=== PATIENT | female | born 1935 | race Caucasian/White ===

== ENCOUNTER 2017-10-03 15:17 | Inpatient (IN) | payer OTHER ==
[~2017-10-03] VITALS: Ht 162.6 cm; Wt 84.6 kg
[~2017-10-03 15:17] MED LIST: CRESTOR20 MG PO; ELIQUIS5 MG PO; furosemide PO
[2017-10-03 17:16] LABS: EOSINOPHIL (%) 2.6 % (0-5); EOSINOPHIL COUNT 0.2 K/uL (0-0.3); HEMATOCRIT 33.6 % (36.0-46.0); IMMATURE GRANULOCYTE (%) 0.5 % (0.0-0.7); INSTRUMENT ABS NEUTROPHIL CT 3.5 K/uL; LYMPHOCYTE COUNT 1.5 K/uL (1.0-2.8); MCH 25.7 PG (29.0-34.0); MCHC 29.8 G/DL (30.0-36.0); MCV 86.4 FL (83-99); MEAN PLAT.VOLUME 11.5 uM^3 (9.5-12.4); MONOCYTE (%) 10.2 % (3-12); MONOCYTE COUNT 0.6 K/uL (0-0.8); NEUTROPHIL (%) 60.1 % (45-76); NEUTROPHIL COUNT 3.5 K/uL (1.8-6.4); PLATELET COUNT 211 K/uL (156-360); RBC DIS.WIDTH-CV 15.5 % (11.8-14.6); RBC DIS.WIDTH-SD 48.9 % (39-53); RED BLOOD COUNT 3.89 M/uL (3.80-5.20); WHITE BLOOD COUNT 5.8 K/uL (4.1-10.2)
[2017-10-03 17:29] LABS: CHLORIDE 103 mEq/L (99-109); POTASSIUM 4.2 mEq/L (3.7-5.4); SODIUM 141 mEq/L (136-147)
[2017-10-03 17:30] LABS: GLUCOSE 97 mg/dL (70-99)
[2017-10-03 17:32] LABS: ANION GAP 8 MEQ/L (2-14)
[2017-10-03 17:34] LABS: GFR ESTIMATE (CALCULATED) > 59 mL/min/
[2017-10-03 17:35] LABS: UREA NITROGEN (BUN) 19 mg/dL (9-23)
[2017-10-03 17:40] LABS: TROP-I INTERPRETATION NEGATIVE; TROPONIN-I 0.07 ng/mL (0.0-0.30)
[2017-10-03 19:13] LABS: TROP-I INTERPRETATION NEGATIVE; TROPONIN-I 0.07 ng/mL (0.0-0.30)
[2017-10-03] MEDS ORDERED: METFORMIN HCL500 MG PO (22:08)
[2017-10-03] MEDS ORDERED: LOSARTAN POTAS100 MG PO (22:14)
[2017-10-03] MEDS ORDERED: POTASSIUM CHLO10 ME3 PO (22:14)
[2017-10-03] MEDS ORDERED: CARTIA XT120 MG PO (22:15)
[2017-10-03] MEDS ORDERED: CARVEDILOL12.5 MG PO (22:16)
[2017-10-03] MEDS ORDERED: FENOFIBRATE145 M1 PO (22:16)
[2017-10-03] MEDS ORDERED: JANUVIA100 MG PO (22:17)
[2017-10-03] MEDS ORDERED: VITAMIN D10000 UNIT PO (22:19)
[2017-10-03] MEDS ORDERED: Q-SORB CO Q-10200 MG PO (22:20)
[2017-10-03] MEDS ORDERED: TYLENOL ARTHRI650 MG PO (22:22)
[2017-10-03 22:57] VITALS: BP 139/65
[2017-10-04 03:09] LABS: HEMATOCRIT 30.8 % (36.0-46.0); MCH 25.8 PG (29.0-34.0); MCHC 29.9 G/DL (30.0-36.0); MCV 86.5 FL (83-99); PLATELET COUNT 200 K/uL (156-360); RBC DIS.WIDTH-CV 15.4 % (11.8-14.6); RBC DIS.WIDTH-SD 49.3 % (39-53); RED BLOOD COUNT 3.56 M/uL (3.80-5.20); WHITE BLOOD COUNT 5.8 K/uL (4.1-10.2)
[2017-10-04 03:28] LABS: CHLORIDE 100 mEq/L (99-109); POTASSIUM 3.7 mEq/L (3.7-5.4); SODIUM 143 mEq/L (136-147)
[2017-10-04 03:30] LABS: GLUCOSE 94 mg/dL (70-99); TROP-I INTERPRETATION NEGATIVE; TROPONIN-I 0.07 ng/mL (0.0-0.30)
[2017-10-04 03:31] LABS: ANION GAP 8 MEQ/L (2-14)
[2017-10-04 03:32] LABS: TOTAL BILIRUBIN 0.3 mg/dL (0.0-1.0)
[2017-10-04 03:34] LABS: ALKALINE PHOSPHATASE 69 IU/L (3-129); GFR ESTIMATE (CALCULATED) > 59 mL/min/
[2017-10-04 03:35] LABS: UREA NITROGEN (BUN) 21 mg/dL (9-23)
[2017-10-04 04:09] VITALS: BP 133/73
[2017-10-04 07:08] VITALS: BP 131/56
[2017-10-04 11:11] VITALS: BP 122/60
[2017-10-04 12:14] LABS: TROP-I INTERPRETATION NEGATIVE; TROPONIN-I 0.08 ng/mL (0.0-0.30)
[2017-10-04 15:18] VITALS: BP 104/51
[2017-10-04 19:57] VITALS: BP 119/57
[2017-10-04 23:55] VITALS: BP 106/55
[2017-10-05] VITALS (7 sets, daily range): BP systolic 107–156; BP diastolic 56–66
[2017-10-05 05:26] LABS: EOSINOPHIL (%) 2.2 % (0-5); EOSINOPHIL COUNT 0.1 K/uL (0-0.3); HEMATOCRIT 30.8 % (36.0-46.0); IMMATURE GRANULOCYTE (%) 0.3 % (0.0-0.7); INSTRUMENT ABS NEUTROPHIL CT 3.8 K/uL; LYMPHOCYTE COUNT 1.7 K/uL (1.0-2.8); MCH 25.6 PG (29.0-34.0); MCHC 30.2 G/DL (30.0-36.0); MCV 84.8 FL (83-99); MEAN PLAT.VOLUME 11.8 uM^3 (9.5-12.4); MONOCYTE (%) 10.8 % (3-12); MONOCYTE COUNT 0.7 K/uL (0-0.8); NEUTROPHIL COUNT 3.8 K/uL (1.8-6.4); PLATELET COUNT 206 K/uL (156-360); RBC DIS.WIDTH-CV 15.7 % (11.8-14.6); RBC DIS.WIDTH-SD 48.6 % (39-53); RED BLOOD COUNT 3.63 M/uL (3.80-5.20); WHITE BLOOD COUNT 6.3 K/uL (4.1-10.2)
[2017-10-05 06:15] LABS: ANION GAP 5 MEQ/L (2-14); CHLORIDE 96 MEQ/L (99-109); GFR ESTIMATE (CALCULATED) > 59 mL/min/; GLUCOSE 122 mg/dL (70-99); POTASSIUM 3.9 MEQ/L (3.7-5.4); SAMPLE HEMOLYSIS CHECK 0; SAMPLE ICTERIC CHECK 0; SAMPLE LIPEMIA CHECK 0; SODIUM 141 MEQ/L (136-147); UREA NITROGEN (BUN) 27 mg/dL (9-23)
[2017-10-06 03:56] VITALS: BP 124/60
[2017-10-06 05:56] LABS: ANION GAP 8 MEQ/L (2-14); CHLORIDE 95 MEQ/L (99-109); GFR ESTIMATE (CALCULATED) > 59 mL/min/; GLUCOSE 143 mg/dL (70-99); POTASSIUM 4.1 MEQ/L (3.7-5.4); SAMPLE HEMOLYSIS CHECK 0; SAMPLE ICTERIC CHECK 0; SAMPLE LIPEMIA CHECK 0; SODIUM 139 MEQ/L (136-147); UREA NITROGEN (BUN) 31 mg/dL (9-23)
[2017-10-06 07:50] VITALS: BP 132/61
[2017-10-06 12:00] VITALS: BP 143/65
[2017-10-06] MEDS ORDERED: ICY HOT 4%-1%76.5 GM TP (15:30)
[2017-10-06 16:21] VITALS: BP 147/65
[2017-10-06 20:59] VITALS: BP 144/64
[2017-10-07] VITALS (9 sets, daily range): BP systolic 105–157; BP diastolic 51–74
[2017-10-07 06:46] LABS: ANION GAP 6 MEQ/L (2-14); CHLORIDE 98 MEQ/L (99-109); GFR ESTIMATE (CALCULATED) > 59 mL/min/; GLUCOSE 125 mg/dL (70-99); SAMPLE HEMOLYSIS CHECK 0; SAMPLE ICTERIC CHECK 0; SAMPLE LIPEMIA CHECK 0; SODIUM 139 MEQ/L (136-147); UREA NITROGEN (BUN) 26 mg/dL (9-23)
[2017-10-08 03:37] VITALS: BP 101/51
[2017-10-08 08:37] VITALS: BP 122/56
[2017-10-08 16:44] VITALS: BP 122/58
[2017-10-08] MEDS ORDERED: DUONEB 2.5-0.5 M3 ML AEROSOL (16:45)
[2017-10-08] MEDS ORDERED: SPIRONOLACTONE25 MG PO (16:46)
[2017-10-08] MEDS ORDERED: TRAMADOL HCL50 MG PO (16:46)
[2017-10-08] MEDS ORDERED: Colchicine,Colcrys PO (16:47)
[2017-10-08] MEDS ORDERED: DOCUSATE SODIU100 MG PO (16:47)
[2017-10-08] MEDS ORDERED: FUROSEMIDE40 MG PO (16:47)
== END 2017-10-08 18:16 | DRG 292 ==
LOC: EME 15:17 → EDOF 21:30 → 4EAST 21:30 → ENRESERV 21:52 → 4EAST 22:37 → ENRESERV 10-07 14:39 → 2EAST 10-07 18:23
PROVIDERS: Emergency Medicine; Family Medicine Sports Medicine; Internal Medicine
DX: I50.33 Acute on chronic diastolic (congestive) heart failure (principal); I48.2 Chronic atrial fibrillation; J44.9 Chronic obstructive pulmonary disease, unspecified; I49.5 Sick sinus syndrome; J90 Pleural effusion, not elsewhere classified; M10.9 Gout, unspecified; R09.02 Hypoxemia; I11.0 Hypertensive heart disease with heart failure; E78.5 Hyperlipidemia, unspecified; D64.9 Anemia, unspecified; E66.9 Obesity, unspecified; E11.9 Type 2 diabetes mellitus without complications; I25.10 Atherosclerotic heart disease of native coronary artery without angina pectoris; M17.11 Unilateral primary osteoarthritis, right knee; M25.561 Pain in right knee; Z87.891 Personal history of nicotine dependence; Z68.33 Body mass index [BMI] 33.0-33.9, adult; Z95.0 Presence of cardiac pacemaker; Z95.1 Presence of aortocoronary bypass graft; Z80.49 Family history of malignant neoplasm of other genital organs; Z90.710 Acquired absence of both cervix and uterus; Z80.0 Family history of malignant neoplasm of digestive organs; I25.2 Old myocardial infarction
CPT/HCPCS: 71010; 71020; 73564; 73630; 80048; 80053; 82306; 82607; 83880; 84439; 84443; 84484; 84550; 85025; 85027; 93005; 93306; 93970; 94640; 94640 76; 94799; 99202; 99281; 99285; J1940

== ENCOUNTER 2017-11-03 12:08 | Inpatient (IN) | payer OTHER ==
[~2017-11-03] VITALS: Ht 165.1 cm; Wt 79.9 kg
[~2017-11-03 12:08] MED LIST changes: +CARTIA XT120 MG PO; +CARVEDILOL12.5 MG PO; +Colchicine,Colcrys PO; +DOCUSATE SODIU100 MG PO; +DUONEB 2.5-0.5 M3 ML AEROSOL; +FENOFIBRATE145 M1 PO; +FUROSEMIDE40 MG PO; +ICY HOT 4%-1%76.5 GM TP; +JANUVIA100 MG PO; +LOSARTAN POTAS100 MG PO; +METFORMIN HCL500 MG PO; +POTASSIUM CHLO10 ME3 PO; +Q-SORB CO Q-10200 MG PO; +SPIRONOLACTONE25 MG PO; +TRAMADOL HCL50 MG PO; +TYLENOL ARTHRI650 MG PO; +VITAMIN D10000 UNIT PO
[2017-11-03] MEDS ORDERED: FUROSEMIDE40 MG PO (15:56)
[2017-11-03] MEDS ORDERED: COLCHICINE0.6 M1 PO (15:56)
[2017-11-03] MEDS ORDERED: MICRO-K10 ME2 PO (15:57)
[2017-11-03] MEDS ORDERED: SODIUM CHLORIDE1 G1 PO (15:59)
[2017-11-03] MEDS ORDERED: TRADJENTA5 MG PO (15:59)
[2017-11-03] MEDS ORDERED: QUESTRAN PACKET4 GM PO ×2 (16:00→16:11)
[2017-11-03] MEDS ORDERED: ACIDOPHILUS1 EAC3 PO (16:01)
[2017-11-03 16:02] LABS: APPEARANCE SL.HAZY ((CLEAR)); BILIRUBIN NEGATIVE; BLOOD SMALL; COLOR YELLOW ((YELLOW)); GLUCOSE (STRIP) NEGATIVE; KETONES NEGATIVE; LEUKOCYTES LARGE; NITRITE NEGATIVE; PROTEIN (STRIP) NEGATIVE; UROBILINOGEN 0.2 MG/DL (0.2-1.0)
[2017-11-03] MEDS ORDERED: Q-SORB CO Q-10200 MG PO (16:03)
[2017-11-03] MEDS ORDERED: THIAMINE HCL100 MG PO (16:03)
[2017-11-03] MEDS ORDERED: BENADRYL ALLERG25 MG PO (16:05)
[2017-11-03] MEDS ORDERED: CATAPRES0.1 MG PO (16:05)
[2017-11-03 16:07] LABS: BACTERIA RARE /HPF; EPITHELIAL CELLS RARE /HPF; HYALINE CASTS 0-5 /LPF; MUCUS TRACE /LPF; RED BLOOD CELLS 0-5 /HPF (0-5); WHITE BLOOD CELLS 20-30 /HPF (0-5)
[2017-11-03] MEDS ORDERED: DULCOLAX10 MG PR (16:07)
[2017-11-03] MEDS ORDERED: PHILLIPS'400 MG/5 M PO (16:07)
[2017-11-03] MEDS ORDERED: FLEET ENEMA-AD118 ML PR (16:08)
[2017-11-03] MEDS ORDERED: DUONEB 2.5-0.5 M3 ML AEROSOL (16:09)
[2017-11-03] MEDS ORDERED: TRAMADOL HCL50 MG PO (16:10)
[2017-11-03] MEDS ORDERED: CEPACOL SORE T1 EAC9 MM (16:11)
[2017-11-03] MEDS ORDERED: ATIVAN0.5 MG PO (16:12)
[2017-11-03] MEDS ORDERED: ANTIVERT12.5 MG PO (16:12)
[2017-11-03] MEDS ORDERED: ZOFRAN ODT8 MG PO (16:13)
[2017-11-03] MEDS ORDERED: IMODIUM A-D2 M2 PO (16:13)
[2017-11-03 21:05] VITALS: BP 118/58
[2017-11-04] VITALS (9 sets, daily range): BP systolic 94–121; BP diastolic 48–86
[2017-11-04 05:18] LABS: STOOL OCCULT BLD 1ST SPECIMEN NEGATIVE
[2017-11-04 05:58] LABS: HEMATOCRIT 30.1 % (36.0-46.0); MCH 24.8 PG (29.0-34.0); MCHC 29.9 G/DL (30.0-36.0); MCV 82.9 FL (83-99); RBC DIS.WIDTH-CV 17.2 % (11.8-14.6); RBC DIS.WIDTH-SD 49.4 % (39-53); RED BLOOD COUNT 3.63 M/uL (3.80-5.20); WHITE BLOOD COUNT 5.5 K/uL (4.1-10.2)
[2017-11-04 06:05] LABS: PLATELET COUNT 171 K/uL (156-360)
[2017-11-04 06:24] LABS: ALBUMIN 2.8 G/DL (3.2-4.8); ALKALINE PHOSPHATASE 80 IU/L (3-129); ALT (GPT) 39 IU/L (3-49); AST (GOT) 39 IU/L (2-34); CHLORIDE 102 MEQ/L (99-109); GLUCOSE 98 mg/dL (70-99); POTASSIUM 4.5 MEQ/L (3.7-5.4); SODIUM 133 MEQ/L (136-147); TOTAL PROTEIN 5.1 G/DL (6.4-8.3); UREA NITROGEN (BUN) 36 mg/dL (9-23)
[2017-11-04 06:26] LABS: CREATININE 0.9 MG/DL (0.6-1.3); GFR ESTIMATE (CALCULATED) > 59 mL/min/; TOTAL BILIRUBIN 0.5 MG/DL (0.0-1.0)
[2017-11-05 04:00] VITALS: BP 109/72
[2017-11-05 05:53] LABS: BASOPHIL (%) 0.6 % (0-1); EOSINOPHIL (%) 0 % (0-5); HEMOGLOBIN 9.2 G/DL (11.9-15.5); IMMATURE GRANULOCYTE (%) 4.4 % (0.0-0.7); LYMPHOCYTE (%) 21.4 % (15-42); MCH 25.8 PG (29.0-34.0); MCHC 30.7 G/DL (30.0-36.0); MCV 84.3 FL (83-99); NEUTROPHIL (%) 52.6 % (45-76); NEUTROPHIL COUNT 2.5 K/uL (1.8-6.4); NRBC (%) 0.4 /100 WBC (0-0); PLATELET COUNT 163 K/uL (156-360); RBC DIS.WIDTH-CV 17.4 % (11.8-14.6); RBC DIS.WIDTH-SD 49.9 % (39-53); RED BLOOD COUNT 3.56 M/uL (3.80-5.20); WHITE BLOOD COUNT 4.8 K/uL (4.1-10.2)
[2017-11-05 06:20] LABS: ALBUMIN 2.8 G/DL (3.2-4.8); ALKALINE PHOSPHATASE 83 IU/L (3-129); ALT (GPT) 33 IU/L (3-49); AST (GOT) 31 IU/L (2-34); CHLORIDE 105 MEQ/L (99-109); CREATININE 0.7 MG/DL (0.6-1.3); GFR ESTIMATE (CALCULATED) > 59 mL/min/; GLUCOSE 94 mg/dL (70-99); POTASSIUM 4.5 MEQ/L (3.7-5.4); SODIUM 139 MEQ/L (136-147); TOTAL BILIRUBIN 0.5 MG/DL (0.0-1.0); TOTAL PROTEIN 4.9 G/DL (6.4-8.3); UREA NITROGEN (BUN) 24 mg/dL (9-23)
[2017-11-05 07:29] VITALS: BP 110/55
[2017-11-05 08:47] LABS: FOLIC ACID (FOLATE) 15.5 NG/ML (5.0-22.0)
[2017-11-05 10:29] LABS: TREPONEMA ANTIBODY NEGATIVE (NEGATIVE)
[2017-11-05 12:56] LABS: PREALBUMIN 14.9 mg/dL (10-40)
[2017-11-05 16:23] VITALS: BP 103/49
[2017-11-06 00:17] VITALS: BP 95/46
[2017-11-06 07:10] VITALS: BP 109/52
[2017-11-06 09:57] LABS: BASOPHIL (%) 0.4 % (0-1); EOSINOPHIL (%) 0 % (0-5); HEMATOCRIT 27.4 % (36.0-46.0); IMMATURE GRANULOCYTE (%) 4.7 % (0.0-0.7); LYMPHOCYTE (%) 20.3 % (15-42); MCH 25.1 PG (29.0-34.0); MCHC 29.2 G/DL (30.0-36.0); MCV 85.9 FL (83-99); MONOCYTE (%) 17.2 % (3-12); MONOCYTE COUNT 0.8 K/uL (0-0.8); NEUTROPHIL (%) 57.4 % (45-76); NEUTROPHIL COUNT 2.7 K/uL (1.8-6.4); NRBC (%) 0.4 /100 WBC (0-0); PLATELET COUNT 185 K/uL (156-360); RBC DIS.WIDTH-CV 17.1 % (11.8-14.6); RBC DIS.WIDTH-SD 50.9 % (39-53); RED BLOOD COUNT 3.19 M/uL (3.80-5.20); WHITE BLOOD COUNT 4.7 K/uL (4.1-10.2)
[2017-11-06 10:24] LABS: CHLORIDE 110 MEQ/L (99-109); CREATININE 0.7 MG/DL (0.6-1.3); GFR ESTIMATE (CALCULATED) > 59 mL/min/; POTASSIUM 4.9 MEQ/L (3.7-5.4); SODIUM 142 MEQ/L (136-147); UREA NITROGEN (BUN) 23 mg/dL (9-23)
[2017-11-06 10:25] LABS: GLUCOSE 118 mg/dL (70-99)
[2017-11-06 12:49] VITALS: BP 91/46
[2017-11-06 16:05] VITALS: BP 106/54
[2017-11-06 23:36] VITALS: BP 80/40
[2017-11-07] VITALS (9 sets, daily range): BP systolic 92–127; BP diastolic 48–70
[2017-11-07 03:21] LABS: C DIFF TOXIN NEGATIVE (NEGATIVE)
[2017-11-07 05:29] LABS: HEMATOCRIT 25.5 % (36.0-46.0); HEMOGLOBIN 7.5 G/DL (11.9-15.5); MCH 25.1 PG (29.0-34.0); MCHC 29.4 G/DL (30.0-36.0); MCV 85.3 FL (83-99); RBC DIS.WIDTH-CV 17.8 % (11.8-14.6); RED BLOOD COUNT 2.99 M/uL (3.80-5.20); WHITE BLOOD COUNT 5.2 K/uL (4.1-10.2)
[2017-11-07 05:55] LABS: CHLORIDE 109 MEQ/L (99-109); CREATININE 0.6 MG/DL (0.6-1.3); GFR ESTIMATE (CALCULATED) > 59 mL/min/; GLUCOSE 110 mg/dL (70-99); POTASSIUM 4.7 MEQ/L (3.7-5.4); SODIUM 141 MEQ/L (136-147); UREA NITROGEN (BUN) 21 mg/dL (9-23)
[2017-11-07 06:09] LABS: PLAT.SUFFICIENCY ADEQUATE; PLATELET COUNT 166 K/uL (156-360)
[2017-11-08] VITALS (7 sets, daily range): BP systolic 118–146; BP diastolic 56–78
[2017-11-08 06:29] LABS: BASOPHIL (%) 0.7 % (0-1); EOSINOPHIL (%) 0 % (0-5); HEMATOCRIT 33.1 % (36.0-46.0); LYMPHOCYTE (%) 20.3 % (15-42); LYMPHOCYTE COUNT 1.1 K/uL (1.0-2.8); MCH 26.5 PG (29.0-34.0); MCHC 30.8 G/DL (30.0-36.0); MONOCYTE (%) 15.4 % (3-12); MONOCYTE COUNT 0.8 K/uL (0-0.8); NEUTROPHIL (%) 59.6 % (45-76); NEUTROPHIL COUNT 3.3 K/uL (1.8-6.4); NRBC (%) 0.4 /100 WBC (0-0); PLATELET COUNT 160 K/uL (156-360); RBC DIS.WIDTH-SD 52.1 % (39-53); WHITE BLOOD COUNT 5.5 K/uL (4.1-10.2)
[2017-11-08 06:30] LABS: HEMOGLOBIN 10.2 G/DL (11.9-15.5); RED BLOOD COUNT 3.85 M/uL (3.80-5.20)
[2017-11-08 06:45] LABS: CHLORIDE 104 MEQ/L (99-109); CREATININE 0.6 MG/DL (0.6-1.3); GFR ESTIMATE (CALCULATED) > 59 mL/min/; GLUCOSE 111 mg/dL (70-99); SODIUM 141 MEQ/L (136-147); UREA NITROGEN (BUN) 15 mg/dL (9-23)
[2017-11-08 10:51] LABS: STOOL OCCULT BLD 1ST SPECIMEN NEGATIVE
[2017-11-09 00:05] VITALS: BP 111/55
[2017-11-09 07:15] LABS: BASOPHIL (%) 0.4 % (0-1); EOSINOPHIL (%) 0.2 % (0-5); HEMATOCRIT 33.3 % (36.0-46.0); HEMOGLOBIN 10.2 G/DL (11.9-15.5); LYMPHOCYTE (%) 19.6 % (15-42); LYMPHOCYTE COUNT 1.1 K/uL (1.0-2.8); MCH 26.6 PG (29.0-34.0); MCHC 30.6 G/DL (30.0-36.0); MCV 86.9 FL (83-99); MONOCYTE (%) 12.9 % (3-12); MONOCYTE COUNT 0.7 K/uL (0-0.8); NEUTROPHIL (%) 63.9 % (45-76); NEUTROPHIL COUNT 3.6 K/uL (1.8-6.4); PLATELET COUNT 160 K/uL (156-360); RBC DIS.WIDTH-CV 18.1 % (11.8-14.6); RED BLOOD COUNT 3.83 M/uL (3.80-5.20); WHITE BLOOD COUNT 5.7 K/uL (4.1-10.2)
[2017-11-09 07:18] LABS: CHLORIDE 104 MEQ/L (99-109); CREATININE 0.5 MG/DL (0.6-1.3); GFR ESTIMATE (CALCULATED) > 59 mL/min/; POTASSIUM 3.7 MEQ/L (3.7-5.4); SODIUM 141 MEQ/L (136-147); UREA NITROGEN (BUN) 12 mg/dL (9-23)
[2017-11-09 07:20] LABS: GLUCOSE 76 mg/dL (70-99)
[2017-11-09 07:44] VITALS: BP 123/61
[2017-11-09 16:22] VITALS: BP 124/82
[2017-11-09 21:25] VITALS: BP 146/70
[2017-11-09 23:45] VITALS: BP 129/62
[2017-11-10 08:29] VITALS: BP 129/62
[2017-11-10] MEDS ORDERED: CARVEDILOL6.25 MG PO (12:54)
[2017-11-10] MEDS ORDERED: Chronulac,Cephulac,E PO (12:54)
[2017-11-10] MEDS ORDERED: PANTOPRAZOLE SO40 MG PO (12:56)
[2017-11-10 16:26] VITALS: BP 136/58
== END 2017-11-10 17:10 | DRG 441 ==
LOC: EME 12:08 → EDOF 17:30 → 5EAST 17:30 → CANRESERV 17:43 → ENRESERV 17:43 → 5EAST 20:21 → ENPENDDIS 11-10 → 5EAST 11-10 17:10
PROVIDERS: Emergency Medicine; Internal Medicine; Student in an Organized Health Care Education/Training Program
DX: K72.90 Hepatic failure, unspecified without coma (principal); G93.41 Metabolic encephalopathy; R19.7 Diarrhea, unspecified; T47.3X5A Adverse effect of saline and osmotic laxatives, initial encounter; T50.4X5A Adverse effect of drugs affecting uric acid metabolism, initial encounter; N17.9 Acute kidney failure, unspecified; E86.0 Dehydration; K22.10 Ulcer of esophagus without bleeding; K29.60 Other gastritis without bleeding; K25.9 Gastric ulcer, unspecified as acute or chronic, without hemorrhage or perforation; I42.9 Cardiomyopathy, unspecified; I13.0 Hypertensive heart and chronic kidney disease with heart failure and stage 1 through stage 4 chronic kidney disease, or unspecified chronic kidney disease; I50.32 Chronic diastolic (congestive) heart failure; N18.9 Chronic kidney disease, unspecified; E11.22 Type 2 diabetes mellitus with diabetic chronic kidney disease; E87.1 Hypo-osmolality and hyponatremia; D64.9 Anemia, unspecified; R82.99 Other abnormal findings in urine; F10.188 Alcohol abuse with other alcohol-induced disorder; K70.30 Alcoholic cirrhosis of liver without ascites; R03.1 Nonspecific low blood-pressure reading; E78.5 Hyperlipidemia, unspecified; I25.10 Atherosclerotic heart disease of native coronary artery without angina pectoris; J44.9 Chronic obstructive pulmonary disease, unspecified; I87.8 Other specified disorders of veins; M10.9 Gout, unspecified; G47.33 Obstructive sleep apnea (adult) (pediatric); E66.9 Obesity, unspecified; Z68.29 Body mass index [BMI] 29.0-29.9, adult; I25.2 Old myocardial infarction; Z87.891 Personal history of nicotine dependence; Z95.1 Presence of aortocoronary bypass graft; Z95.810 Presence of automatic (implantable) cardiac defibrillator; Z90.710 Acquired absence of both cervix and uterus
CPT/HCPCS: 70450; 71010; 71045; 80048; 80053; 81003; 82140; 82272; 82607; 82746; 82948; 83630; 84134; 85025; 85027; 86780; 86850; 86900; 86901; 86920; 87040; 87086; 87177; 87329; 87493; 87641; 88305; 88342 TC; 92610 GN; 94640; 94799; 97530 GO; 97530 GP; 99202; 99281; 99285; C9113; J0696; J1815; J1940; J7030; J7120; P9016

== ENCOUNTER 2018-03-26 17:07 | Inpatient (IN) | payer OTHER ==
[2018-03-26] VITALS (7 sets, daily range): BP systolic 86–109; BP diastolic 63–84
[~2018-03-26] VITALS: Ht 165.1 cm; Wt 88.2 kg
[~2018-03-26 17:07] MED LIST changes: +ACIDOPHILUS1 EAC3 PO; +ANTIVERT12.5 MG PO; +ATIVAN0.5 MG PO; +BENADRYL ALLERG25 MG PO; -CARTIA XT120 MG PO; +CARVEDILOL6.25 MG PO; +CATAPRES0.1 MG PO; +CEPACOL SORE T1 EAC9 MM; +COLCHICINE0.6 M1 PO; +Chronulac,Cephulac,E PO; +DULCOLAX10 MG PR; +FLEET ENEMA-AD118 ML PR; +IMODIUM A-D2 M2 PO; +MICRO-K10 ME2 PO; +PANTOPRAZOLE SO40 MG PO; +PHILLIPS'400 MG/5 M PO; +QUESTRAN PACKET4 GM PO; +SODIUM CHLORIDE1 G1 PO; +THIAMINE HCL100 MG PO; +TRADJENTA5 MG PO; +ZOFRAN ODT8 MG PO
[2018-03-26 17:42] LABS: HEMATOCRIT 36.2 % (36.0-46.0); HEMOGLOBIN 10.9 G/DL (11.9-15.5); MCHC 30.1 G/DL (30.0-36.0); MCV 76.5 FL (83-99); NRBC (%) 0.3 /100 WBC (0-0); PLATELET COUNT 273 K/uL (156-360); RBC DIS.WIDTH-CV 20.8 % (11.8-14.6); RED BLOOD COUNT 4.73 M/uL (3.80-5.20); WHITE BLOOD COUNT 6.3 K/uL (4.1-10.2)
[2018-03-26 17:45] LABS: BASOPHIL (%) 0.2 % (0-1); EOSINOPHIL (%) 1.8 % (0-5); EOSINOPHIL COUNT 0.1 K/uL (0-0.3); IMMATURE GRANULOCYTE (%) 0.2 % (0.0-0.7); LYMPHOCYTE (%) 29.7 % (15-42); LYMPHOCYTE COUNT 1.9 K/uL (1.0-2.8); MONOCYTE (%) 11.2 % (3-12); MONOCYTE COUNT 0.7 K/uL (0-0.8); NEUTROPHIL (%) 56.9 % (45-76); NEUTROPHIL COUNT 3.6 K/uL (1.8-6.4)
[2018-03-26 18:03] LABS: TROP-I INTERPRETATION NEGATIVE; TROPONIN-I 0.04 ng/mL (0.0-0.30)
[2018-03-26 18:10] LABS: ALBUMIN 3.4 g/dL (3.2-4.8); CHLORIDE 98 mEq/L (99-109); POTASSIUM 5.3 mEq/L (3.7-5.4); SODIUM 137 mEq/L (136-147)
[2018-03-26 18:12] LABS: GLUCOSE 135 mg/dL (70-99); TOTAL PROTEIN 5.9 g/dL (6.4-8.3)
[2018-03-26 18:14] LABS: TOTAL BILIRUBIN 0.8 mg/dL (0.0-1.0)
[2018-03-26 18:16] LABS: ALKALINE PHOSPHATASE 140 IU/L (3-129); GFR ESTIMATE (CALCULATED) 24 mL/min/
[2018-03-26 18:17] LABS: AST (GOT) 35 IU/L (2-34); UREA NITROGEN (BUN) 47 mg/dL (9-23)
[2018-03-26 18:19] LABS: ALT (GPT) 25 IU/L (3-49)
[2018-03-26 18:40] LABS: CREATININE 2.1 mg/dL (0.6-1.3)
[2018-03-26] MEDS ORDERED: FUROSEMIDE40 MG PO (20:52)
[2018-03-26] MEDS ORDERED: CARVEDILOL12.5 MG PO (20:53)
[2018-03-26] MEDS ORDERED: LOSARTAN POTAS100 MG PO (20:53)
[2018-03-26] MEDS ORDERED: JANUVIA100 MG PO (20:54)
[2018-03-26] MEDS ORDERED: VITAMIN D5000 UNI1 PO (20:56)
[2018-03-26] MEDS ORDERED: CARTIA XT120 MG PO (20:57)
[2018-03-26] MEDS ORDERED: K-DUR10 MEQ PO (20:58)
[2018-03-26] MEDS ORDERED: ICAPS TABLET1 EACH PO (20:59)
[2018-03-26] MEDS ORDERED: CALCIUM500 M4 PO (20:59)
[2018-03-26] MEDS ORDERED: CINNAMON PO (21:00)
[2018-03-26] MEDS ORDERED: CENTRUM SILVER1 EAC4 PO (21:02)
[2018-03-26] MEDS ORDERED: CURCUMIN PO (21:02)
[2018-03-26] MEDS ORDERED: [UNRECOGNIZED DRUG - OTHER] PO (21:04)
[2018-03-26] MEDS ORDERED: LACTULOSE10 GM/151 PO (21:05)
[2018-03-26 21:21] LABS: APPEARANCE CLOUDY ((CLEAR)); BILIRUBIN NEGATIVE; BLOOD LARGE; COLOR AMBER ((YELLOW)); GLUCOSE (STRIP) NEGATIVE; KETONES NEGATIVE; LEUKOCYTES LARGE; NITRITE POSITIVE; PROTEIN (STRIP) 30; SPECIFIC GRAVITY 1.017 (1.000-1.030); UROBILINOGEN 0.2 MG/DL (0.2-1.0)
[2018-03-26 21:41] LABS: BACTERIA 3+ /HPF; EPITHELIAL CELLS 1+ /HPF; MUCUS 1+ /LPF; RED BLOOD CELLS TNTC /HPF (0-5); UCUL ADDED? YES; WHITE BLOOD CELLS TNTC /HPF (0-5)
[2018-03-27] VITALS (21 sets, daily range): BP systolic 69–139; BP diastolic 44–76
[2018-03-27 05:30] LABS: HEMATOCRIT 35.7 % (36.0-46.0); HEMOGLOBIN 10.4 G/DL (11.9-15.5); MCH 22.9 PG (29.0-34.0); MCHC 29.1 G/DL (30.0-36.0); MCV 78.5 FL (83-99); PLATELET COUNT 242 K/uL (156-360); RBC DIS.WIDTH-CV 20.5 % (11.8-14.6); RED BLOOD COUNT 4.55 M/uL (3.80-5.20); WHITE BLOOD COUNT 6.5 K/uL (4.1-10.2)
[2018-03-27 05:39] LABS: ALBUMIN 3.1 G/DL (3.2-4.8); ALKALINE PHOSPHATASE 115 IU/L (3-129); ALT (GPT) 21 IU/L (3-49); AST (GOT) 29 IU/L (2-34); CHLORIDE 101 MEQ/L (99-109); CREATININE 1.9 MG/DL (0.6-1.3); GFR ESTIMATE (CALCULATED) 27 mL/min/; GLUCOSE 109 mg/dL (70-99); POTASSIUM 4.6 MEQ/L (3.7-5.4); SODIUM 139 MEQ/L (136-147); TOTAL BILIRUBIN 0.9 MG/DL (0.0-1.0); TOTAL PROTEIN 5.5 G/DL (6.4-8.3); UREA NITROGEN (BUN) 45 mg/dL (9-23)
[2018-03-27 07:50] LABS: MAGNESIUM 2.2 mg/dl (1.3-2.7)
[2018-03-27 10:22] LABS: HEMOGLOBIN A1c (GLYCOHEMOGLOB) 7.3 % (Below 5.7)
[2018-03-27 15:30] LABS: PTT 33.1 SEC (25-37)
[2018-03-28] VITALS (27 sets, daily range): BP systolic 67–108; BP diastolic 44–76
[2018-03-28 12:31] LABS: TROP-I INTERPRETATION NEGATIVE; TROPONIN-I 0.04 ng/mL (0.0-0.30)
[2018-03-28 21:50] LABS: DEVICE NC; O2 FLOW 6 L/MIN; PCO2 87 mm Hg (35-45); PO2 100 mm Hg (80-100); SITE LB
[2018-03-28 21:51] LABS: BASE EXCESS 3.8 mEq/L (-3 to +3); CARBOXY HGB 1.6 % (0-5)
[2018-03-28 21:52] LABS: COMMENTS - BLOOD GASES C+
[2018-03-29] VITALS (18 sets, daily range): BP systolic 43–115; BP diastolic 32–68
[2018-03-29 07:09] LABS: HEMATOCRIT 38.9 % (36.0-46.0); HEMOGLOBIN 10.6 G/DL (11.9-15.5); MCH 22.7 PG (29.0-34.0); MCHC 27.2 G/DL (30.0-36.0); NRBC (%) 0.2 /100 WBC (0-0); PLATELET COUNT 244 K/uL (156-360); RBC DIS.WIDTH-CV 20.4 % (11.8-14.6); RBC DIS.WIDTH-SD 60.3 % (39-53); RED BLOOD COUNT 4.67 M/uL (3.80-5.20); WHITE BLOOD COUNT 8.5 K/uL (4.1-10.2)
[2018-03-29 07:11] LABS: MCV 83.3 FL (83-99)
[2018-03-29 07:21] LABS: CHLORIDE 106 MEQ/L (99-109); GLUCOSE 128 mg/dL (70-99); POTASSIUM 5.5 MEQ/L (3.7-5.4); SODIUM 138 MEQ/L (136-147); UREA NITROGEN (BUN) 33 mg/dL (9-23)
[2018-03-29 07:22] LABS: CREATININE 1.2 MG/DL (0.6-1.3); GFR ESTIMATE (CALCULATED) 46 mL/min/
== END 2018-03-29 14:06 | DRG 189 ==
LOC: EME 17:07 → EDOF 21:55 → 4WEST 21:55 → ENRESERV 21:57 → 4WEST 22:32
PROVIDERS: Emergency Medicine; Internal Medicine Critical Care Medicine; Surgery
DX: J96.21 Acute and chronic respiratory failure with hypoxia (principal); N39.0 Urinary tract infection, site not specified; I11.0 Hypertensive heart disease with heart failure; I50.33 Acute on chronic diastolic (congestive) heart failure; N17.9 Acute kidney failure, unspecified; R57.9 Shock, unspecified; Z99.81 Dependence on supplemental oxygen; I25.10 Atherosclerotic heart disease of native coronary artery without angina pectoris; Z66 Do not resuscitate; E11.9 Type 2 diabetes mellitus without complications; I27.81 Cor pulmonale (chronic); E78.5 Hyperlipidemia, unspecified; E87.2 Acidosis; J44.9 Chronic obstructive pulmonary disease, unspecified; D64.9 Anemia, unspecified; Z95.1 Presence of aortocoronary bypass graft; Z95.5 Presence of coronary angioplasty implant and graft; I48.92 Unspecified atrial flutter; L03.116 Cellulitis of left lower limb; L03.115 Cellulitis of right lower limb; Z95.0 Presence of cardiac pacemaker; I27.29 Other secondary pulmonary hypertension; J96.92 Respiratory failure, unspecified with hypercapnia; B96.20 Unspecified Escherichia coli [E. coli] as the cause of diseases classified elsewhere; Z51.5 Encounter for palliative care; I35.0 Nonrheumatic aortic (valve) stenosis; I48.0 Paroxysmal atrial fibrillation; I42.2 Other hypertrophic cardiomyopathy; J98.11 Atelectasis; Z87.891 Personal history of nicotine dependence
CPT/HCPCS: 36415; 36600; 71045; 71250; 74021; 78580; 80048; 80053; 81003; 82140; 82803; 82948; 83036; 83605; 83735; 83880; 84484; 85025; 85027; 85610; 85730; 87040; 87077; 87086; 87186; 87641; 93005; 93306; 93970; 94799; 99281; 99285; A9540; J0696; J1250; J1815; J1940; J2060; J2270; J2405; J2543; J7030; J7040; J7050; J7120; P9045